=== PATIENT | male | born 1955 | race Caucasian/White ===

== ENCOUNTER 2016-07-06 15:39 | Emergency (ER) | payer OTHER ==
--- NOTE | 2016-07-06 16:49 | ED CLINICAL REPORT ---
Clinical Report - Physicians/Mid Levels [facility] [address] [place] [address] 07/06/2016 15:42 Patient: ERMELINDA MASSEY JR Time Seen: 1645 Jul 06 2016. Arrived- By private vehicle. HISTORY OF PRESENT ILLNESS Chief Complaint: DENTAL PAIN. This started just prior to arrival and is still present. Pain described as mild. No mouth sores or nasal discharge or congestion. (Right dental pain over the last 3 days, recently seen by primary care doctor, and on antibiotics, amoxicillin. Diabetic , last glucose around 200. NO sore throat, no cough.). REVIEW OF SYSTEMS No cough, diarrhea, abdominal pain or headache. All systems otherwise negative, except as recorded above. PAST HISTORY Problems: Cirrhosis. Gastroesophageal Reflux Disease. Diabetes Mellitus. Hypertension. Ankylosing Spondylitis. Medications: Methadone HCl Oral. Omeprazole Oral. Insulin Regular Human Injection. Allergies: Codeine. SOCIAL HISTORY Smoker- current status unknown. ADDITIONAL NOTES The nursing notes have been reviewed. PHYSICAL EXAM Vital Signs: 07/06/2016 15:52 BP: 133/75. HR: 74. RR: 16. O2 saturation: 100%. Temp: 97.8 F. Appearance: Alert. Head: Normal external inspection. Eyes: Conjunctivae and eyelids normal. ENT: Pharynx normal. Lips normal. Gums normal. No trismus present. Uvula midline. No peritonsillar mass, muffled or hoarse voice or dental decay or tenderness. Neck: Trachea midline. No adenopathy. Thyroid normal. CVS: Normal heart rate and rhythm. Heart sounds normal. Respiratory: No respiratory distress. Breath sounds normal. No rales or rhonchi. Skin: Normal skin color. PROGRESS AND PROCEDURES Course of Care: Pt in the er with no distress, afebrile, no signs of ludwigns angina. Pt is a diabetic glucose about 300 in the ER ( bedside blood sugar 306). Uvula midline. No drooing, afebrile, tolerating secretions well. 07/06/2016 15:52 BP: 133/75. HR: 74. RR: 16. O2 saturation: 100%. Temp: 97.8 F. Patient is stable. Symptoms better. Patient/family counseled. Disposition: Discharged. Condition: good. CLINICAL IMPRESSION Moderate dental pain. Well controlled type 2 diabetes with hyperglycemia. INSTRUCTIONS Drink plenty of fluids. (STOP AMOX). Your Current Medications: CONTINUE TAKING THE FOLLOWING MEDICATIONS: Insulin Regular Human Injection. Methadone HCl Oral. Omeprazole Oral. Prescription Medications: Cleocin 300 mg: take 1 capsule orally every 8 hours for 7 days. No refill. Substitution is permissible. Follow-up: Follow up with a specialist in. Understanding of the discharge instructions verbalized by patient. (Electronically signed by Karmen Nelson P.A.-C 07/06/2016 17:52)
--- NOTE | 2016-07-06 16:49 | ED ORDER SUMMARY ---
..... Patient: ERMELINDA MASSEY JR OrderSheet [facility] VisitID: [id number] [place] [address] 61y, M Registration Date/Time: 07/06/2016 ORDER SHEET Weight: 78.9 kg Allergies: Codeine GENERAL ORDERS: POC Glucose (16:21 07/06/2016 EKkenlejose P.A.-C) (16:33 [facility]) MEDICATION ORDERS: Clindamycin IM 600 mg (NOW) (16:44 07/06/2016 EKkenleva P.A.-C) (16:57 [facility]) Insulin Reg Subcut 6 units (HIGH ALERT MEDICATION, NOW) (16:44 07/06/2016 EKoroleva P.A.-C) (16:57 [facility]) IV FLUIDS: ORDER SHEET NOTES: [Electronically signed by Radha Neri (17:41 07/06/2016)] [Electronically signed by Karmen Nelson P.A.-C (17:52 07/06/2016)] [Electronically locked/signed by Radha Neri (17:41 07/06/2016)]
--- NOTE | 2016-07-06 16:49 | ED NURSING NOTES ---
Clinical Report - Nurses [facility] [address] [place] [address] 07/06/2016 15:42 Patient: ERMELINDA MASSEY JR TRIAGE Triage time 1550. Acuity: LEVEL 4. Chief Complaint: RIGHT LOWER TOOTHACHE. Alert. No acute distress. --16:24 Radha Neri 15:52 07/06/16. BP: 133/75. HR: 74. RR: 16. O2 saturation: 100%. Temp: 97.8 F. Pain level now 8/10. --16:24 Radha Neri. Weight: 78.9 kg. Height/Length: 71 inches. BMI: 24.3. --15:51 Radha Neri. Medications Insulin Regular Human Injection. --16:16 Radha Neri Omeprazole Oral. --16:16 Radha Neri Methadone HCl Oral. --16:19 Radha Neri. Allergies Codeine. --16:17 Radha Neri. History Arrived by private vehicle. Historian: patient and family. Accompanied by family. Onset. (1 weeks ago). ( Pt saw 3 days ago, placed on Amoxicillin, sts it is not working). 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 SOCIAL HX: Current every day smoker, start date 1976 (cigarette). --16:24 Radha Neri. PROBLEMS: Cirrhosis. Gastroesophageal Reflux Disease. Diabetes Mellitus. Hypertension. Ankylosing Spondylitis. --16:18 Radha Neri. Interventions To treatment room. --16:24 Radha Neri. PHYSICAL ASSESSMENT GENERAL / NEURO / PSYCH: Alert. Oriented X 4. Appears in no acute distress. HEENT: Pupils equal, round and reactive to light. Dental tenderness. Dental decay. Mucous membranes are pink. RESPIRATORY: Respirations not labored. CVS: Capillary refill less than 2 seconds. SKIN: Skin is warm and dry. Normal skin turgor. --16:25 Radha Neri. NURSING PROGRESS NOTES 16:57 07/06/2016 Clindamycin IM 600 mg given. Given in the right gluteus colin and left gluteus colin (split dose). Allergies verified and confirmed 5 rights. --16:57 Radha Neri 16:57 07/06/2016 Insulin Reg Subcutaneous 6 unit given. Given in the left abdomen. Allergies verified and confirmed 5 rights. --16:57 Radha Neri ( bedside blood sugar 306). --17:22 Radha Neri Reassessment after medication administered. He has had no adverse reaction. --17:40 Radha Neri. DISPOSITION / DISCHARGE Condition at departure: unchanged and stable. No learning barriers present. Discharge instructions provided and reviewed with the patient. Reviewed medication(s). Patient verbalized understanding. Written instructions provided in [place]. The patient was discharged by the physician engineer first assistant. He was discharged home and accompanied by family. He left the Emergency Department ambulatory and via private vehicle. Family member driving. --17:40 Radha Neri Departure time: 1740. --17:41 Radha Neri. Locked/Released at 07/06/2016 17:41 by Radha Neri,
--- NOTE | 2016-07-06 16:49 | ED CLINICAL REPORT ---
Clinical Report - Physicians/Mid Levels [facility] [address] [place] [place] [address] 07/06/2016 15:42 Patient: ERMELINDA MASSEY JR Time Seen: 1645 Jul 06 2016. Arrived- By private vehicle. HISTORY OF PRESENT ILLNESS Chief Complaint: DENTAL PAIN. This started just prior to arrival and is still present. Pain described as mild. No mouth sores or nasal discharge or congestion. (Right dental pain over the last 3 days, recently seen by primary care doctor, and on antibiotics, amoxicillin. Diabetic , last glucose around 200. NO sore throat, no cough.). REVIEW OF SYSTEMS No cough, diarrhea, abdominal pain or headache. All systems otherwise negative, except as recorded above. PAST HISTORY Problems: Cirrhosis. Gastroesophageal Reflux Disease. Diabetes Mellitus. Hypertension. Ankylosing Spondylitis. Medications: Methadone HCl Oral. Omeprazole Oral. Insulin Regular Human Injection. Allergies: Codeine. SOCIAL HISTORY Smoker- current status unknown. ADDITIONAL NOTES The nursing notes have been reviewed. PHYSICAL EXAM Vital Signs: 07/06/2016 15:52 BP: 133/75. HR: 74. RR: 16. O2 saturation: 100%. Temp: 97.8 F. Appearance: Alert. Head: Normal external inspection. Eyes: Conjunctivae and eyelids normal. ENT: Pharynx normal. Lips normal. Gums normal. No trismus present. Uvula midline. No peritonsillar mass, muffled or hoarse voice or dental decay or tenderness. Neck: Trachea midline. No adenopathy. Thyroid normal. CVS: Normal heart rate and rhythm. Heart sounds normal. Respiratory: No respiratory distress. Breath sounds normal. No rales or rhonchi. Skin: Normal skin color. PROGRESS AND PROCEDURES Course of Care: Pt in the er with no distress, afebrile, no signs of ludwigns angina. Pt is a diabetic glucose about 300 in the ER ( bedside blood sugar 306). Uvula midline. No drooing, afebrile, tolerating secretions well. 07/06/2016 15:52 BP: 133/75. HR: 74. RR: 16. O2 saturation: 100%. Temp: 97.8 F. Patient is stable. Symptoms better. Patient/family counseled. Disposition: Discharged. Condition: good. CLINICAL IMPRESSION Moderate dental pain. Well controlled type 2 diabetes with hyperglycemia. INSTRUCTIONS Drink plenty of fluids. (STOP AMOX). Your Current Medications: CONTINUE TAKING THE FOLLOWING MEDICATIONS: Insulin Regular Human Injection. Methadone HCl Oral. Omeprazole Oral. Prescription Medications: Cleocin 300 mg: take 1 capsule orally every 8 hours for 7 days. No refill. Substitution is permissible. Follow-up: Follow up with a specialist in. Understanding of the discharge instructions verbalized by patient. (Electronically signed by Karmen Nelson P.A.-C 07/06/2016 17:52)
--- NOTE | 2016-07-06 16:49 | ED NURSING NOTES ---
Clinical Report - Nurses [facility] [address] [place] [address] 07/06/2016 15:42 Patient: ERMELINDA MASSEY JR TRIAGE Triage time 1550. Acuity: LEVEL 4. Chief Complaint: RIGHT LOWER TOOTHACHE. Alert. No acute distress. --16:24 Radha Neri 15:52 07/06/16. BP: 133/75. HR: 74. RR: 16. O2 saturation: 100%. Temp: 97.8 F. Pain level now 8/10. --16:24 Radha Neri. Weight: 78.9 kg. Height/Length: 71 inches. BMI: 24.3. --15:51 Radha Neri. Medications Insulin Regular Human Injection. --16:16 Radha Neri Omeprazole Oral. --16:16 Radha Neri Methadone HCl Oral. --16:19 Radha Neri. Allergies Codeine. --16:17 Radha Neri. History Arrived by private vehicle. Historian: patient and family. Accompanied by family. Onset. (1 weeks ago). ( Pt saw 3 days ago, placed on Amoxicillin, sts it is not working). 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 SOCIAL HX: Current every day smoker, start date 1976 (cigarette). --16:24 Radha Neri. PROBLEMS: Cirrhosis. Gastroesophageal Reflux Disease. Diabetes Mellitus. Hypertension. Ankylosing Spondylitis. --16:18 Radha Neri. Interventions To treatment room. --16:24 Radha Neri. PHYSICAL ASSESSMENT GENERAL / NEURO / PSYCH: Alert. Oriented X 4. Appears in no acute distress. HEENT: Pupils equal, round and reactive to light. Dental tenderness. Dental decay. Mucous membranes are pink. RESPIRATORY: Respirations not labored. CVS: Capillary refill less than 2 seconds. SKIN: Skin is warm and dry. Normal skin turgor. --16:25 Radha Neri. NURSING PROGRESS NOTES 16:57 07/06/2016 Clindamycin IM 600 mg given. Given in the right gluteus colin and left gluteus colin (split dose). Allergies verified and confirmed 5 rights. --16:57 Radah Neri 16:57 07/06/2016 Insulin Reg Subcutaneous 6 unit given. Given in the left abdomen. Allergies verified and confirmed 5 rights. --16:57 Radha Neri ( bedside blood sugar 306). --17:22 Radha Neri Reassessment after medication administered. He has had no adverse reaction. --17:40 Radha Neri. DISPOSITION / DISCHARGE Condition at departure: unchanged and stable. No learning barriers present. Discharge instructions provided and reviewed with the patient. Reviewed medication(s). Patient verbalized understanding. Written instructions provided in Kosovan. The patient was discharged by the physician pediatric medical assistant. He was discharged home and accompanied by family. He left the Emergency Department ambulatory and via private vehicle. Family member driving. --17:40 Radha Neri Departure time: 1740. --17:41 Radha Neri. Locked/Released at 07/06/2016 17:41 by Radha Neri,
--- NOTE | 2016-07-06 16:49 | ED ORDER SUMMARY ---
..... Patient: ERMELINDA MASSEY JR OrderSheet [facility] VisitID: [id number] [place] [address] 61y, M Registration Date/Time: 07/06/2016 ORDER SHEET Weight: 78.9 kg Allergies: Codeine GENERAL ORDERS: POC Glucose (16:21 07/06/2016 EKkenlejose P.A.-C) (16:33 [facility]) MEDICATION ORDERS: Clindamycin IM 600 mg (NOW) (16:44 07/06/2016 EKkenleva P.A.-C) (16:57 [facility]) Insulin Reg Subcut 6 units (HIGH ALERT MEDICATION, NOW) (16:44 07/06/2016 EKoroleva P.A.-C) (16:57 [facility]) IV FLUIDS: ORDER SHEET NOTES: [Electronically signed by Radha Neri (17:41 07/06/2016)] [Electronically signed by Karmen Nelson P.A.-C (17:52 07/06/2016)] [Electronically locked/signed by Radha Neri (17:41 07/06/2016)]
--- NOTE | 2016-07-06 17:52 | ED DISCHARGE INSTRUCTIONS ---
Patient: ERMELINDA MASSEY General Instructions [facility] VisitID: [id number] [place] [address] 61y, M Registration Date/Time: 07/06/2016 Moderate dental pain. Well controlled type 2 diabetes with hyperglycemia. INSTRUCTIONS Drink plenty of fluids. (STOP AMOX). Your Current Medications: CONTINUE TAKING THE FOLLOWING MEDICATIONS: Insulin Regular Human Injection. Methadone HCl Oral. Omeprazole Oral. Prescription Medications: Cleocin 300 mg: take 1 capsule orally every 8 hours for 7 days. No refill. Substitution is permissible. Follow-up: Follow up with a specialist in. Understanding of the discharge instructions verbalized by patient. ADDITIONAL INFORMATION Dental Pain A crack or cavity in the tooth, which exposes the sensitive inner area of the tooth can cause tooth pain. An infection in the gum or the root of the tooth can cause pain and swelling. The pain is often made worse by drinking hot or cold fluids, or biting on hard foods. Pain may spread from the tooth to the ear or jaw on the same side. Home Care: Avoid hot and cold foods and liquids since your tooth may be sensitive to temperature changes. If your tooth is chipped or cracked, or if there is a large open cavity, apply OIL OF CLOVES (available [id number] in drug stores) directly to the tooth to reduce pain. Some pharmacies carry an [id number] "toothache kit." This contains a paste, which can be applied over the exposed tooth to decrease sensitivity. A cold pack on your jaw over the sore area may help reduce pain. You may use acetaminophen (Tylenol) or ibuprofen (Motrin, Advil) to control pain, unless another medicine was prescribed. [ NOTE: If you have chronic liver or kidney disease or ever had a stomach ulcer or GI bleeding, talk with your doctor before using these medicines.] If you have signs of an infection, an antibiotic will be given. Take it as directed. Follow-Up as directed with a dentist. Your pain may go away with the treatment given. However, only a dentist can fully evaluate and treat the cause and prevent the pain from coming back again. TOOTHACHE IS A SIGN OF DISEASE IN YOUR TOOTH AND SHOULD BE EXAMINED AND TREATED BY A DENTIST. Get Prompt Medical Attention if any of the following occur: Your face becomes swollen or red Pain worsens or spreads to the neck Fever over 100.4 F (38.0 C) Unusual drowsiness; headache or stiff neck; weakness or fainting Pus drains from the tooth Difficulty swallowing or breathing Diabetes with High Blood Sugar You have been treated for high blood sugar (hyperglycemia). This may be becauseof an infection or other illness;eating too many sweets or starches ; not taking enough insulin. Home care High blood sugar may cause symptoms that you can learn to recognize, such as these: If you feel like your blood sugar may be too high, measure it using a blood or urine test. If it is above your usual range, use the "sliding scale"rRegular insulin dose your doctor gave you to correct this. If no "sliding scale" orders were given, contact your doctor for further advice. If your blood sugar is over 300, and you can't reach your doctor, go to the hospital emergency room. Monitor and write down your blood sugars - and insulin dose, if you take insulin - atleast twice a day. Do this before breakfast and before dinner. Do this for the next 3 to 5 days. Follow-up care Follow up with your health care provderduring the next week to review your blood sugar records. You will find out if you need to adjust your dose of insulin or other medicine for blood sugar. When to seek medical care Get prompt medical attention if either of these occur: High blood sugar.Symptoms are frequent urination, feeling dizzy, thirst, headache, nausea or vomiting, abdominal pain, and drowsiness or loss of consciousness. Low blood sugar. Symptoms are fatigue, headache, shakes, excess sweating, hunger, anxiety, reduced vision, drowsiness, weakness, confusion or loss of consciousness, and seizure. Clindamycin Hydrochloride Oral capsule What is this medicine? CLINDAMYCIN (KLIN da MYE sin) is a lincosamide antibiotic. It is used to treat certain kinds of bacterial infections. It will not work for colds, flu, or other viral infections. How should I use this medicine? Take this medicine by mouth with a full glass of water. Follow the directions on the prescription label. You can take this medicine with food or on an empty stomach. If the medicine upsets your stomach, take it with food. Take your medicine at regular intervals. Do not take your medicine more often than directed. Take all of your medicine as directed even if you think your are better. Do not skip doses or stop your medicine early. Talk to your director of special services regarding the use of this medicine in children. Special care may be needed. What side effects may I notice from receiving this medicine? Side effects that you should report to your doctor or health care mgr as soon as possible: allergic reactions like skin rash, itching or hives, swelling of the face, lips, or tongue dark urine pain on swallowing redness, blistering, peeling or loosening of the skin, including inside the mouth unusual bleeding or bruising unusually weak or tired yellowing of eyes or skin Side effects that usually do not require medical attention (report to your doctor or health care mgr if they continue or are bothersome): diarrhea itching in the rectal or genital area joint pain nausea, vomiting stomach pain What may interact with this medicine? chloramphenicol erythromycin kaolin products What if I miss a dose? If you miss a dose, take it as soon as you can. If it is almost time for your next dose, take only that dose. Do not take double or extra doses. Where should I keep my medicine? Keep out of the reach of children. Store at room temperature between 20 and 25 degrees C (68 and 77 degrees F). Throw away any unused medicine after the expiration date. What should I tell my health care provider before I take this medicine? They need to know if you have any of these conditions: kidney disease liver disease stomach problems like colitis an unusual or allergic reaction to clindamycin, lincomycin, or other medicines, foods, dyes like tartrazine or preservatives or trying to get breast-feeding What should I watch for while using this medicine? Tell your doctor or healthcare professional if your symptoms do not start to get better or if they get worse. Do not treat diarrhea with over the counter products. Contact your doctor if you have diarrhea that lasts more than 2 days or if it is severe and watery. You have been given the following additional information: Dental Pain Diabetic Hyperglycemia Clindamycin Hydrochloride Oral capsule (Electronically signed by Karmen Nelson P.A.-C 07/06/2016 17:52)
--- NOTE | 2016-07-06 17:52 | ED DISCHARGE INSTRUCTIONS ---
Patient: ERMELINDA MASSEY General Instructions [facility] VisitID: [id number] [place] [address] 61y, M Registration Date/Time: 07/06/2016 Moderate dental pain. Well controlled type 2 diabetes with hyperglycemia. INSTRUCTIONS Drink plenty of fluids. (STOP AMOX). Your Current Medications: CONTINUE TAKING THE FOLLOWING MEDICATIONS: Insulin Regular Human Injection. Methadone HCl Oral. Omeprazole Oral. Prescription Medications: Cleocin 300 mg: take 1 capsule orally every 8 hours for 7 days. No refill. Substitution is permissible. Follow-up: Follow up with a specialist in. Understanding of the discharge instructions verbalized by patient. ADDITIONAL INFORMATION Dental Pain A crack or cavity in the tooth, which exposes the sensitive inner area of the tooth can cause tooth pain. An infection in the gum or the root of the tooth can cause pain and swelling. The pain is often made worse by drinking hot or cold fluids, or biting on hard foods. Pain may spread from the tooth to the ear or jaw on the same side. Home Care: Avoid hot and cold foods and liquids since your tooth may be sensitive to temperature changes. If your tooth is chipped or cracked, or if there is a large open cavity, apply OIL OF CLOVES (available [id number] in drug stores) directly to the tooth to reduce pain. Some pharmacies carry an [id number] "toothache kit." This contains a paste, which can be applied over the exposed tooth to decrease sensitivity. A cold pack on your jaw over the sore area may help reduce pain. You may use acetaminophen (Tylenol) or ibuprofen (Motrin, Advil) to control pain, unless another medicine was prescribed. [ NOTE: If you have chronic liver or kidney disease or ever had a stomach ulcer or GI bleeding, talk with your doctor before using these medicines.] If you have signs of an infection, an antibiotic will be given. Take it as directed. Follow-Up as directed with a dentist. Your pain may go away with the treatment given. However, only a dentist can fully evaluate and treat the cause and prevent the pain from coming back again. TOOTHACHE IS A SIGN OF DISEASE IN YOUR TOOTH AND SHOULD BE EXAMINED AND TREATED BY A DENTIST. Get Prompt Medical Attention if any of the following occur: Your face becomes swollen or red Pain worsens or spreads to the neck Fever over 100.4 F (38.0 C) Unusual drowsiness; headache or stiff neck; weakness or fainting Pus drains from the tooth Difficulty swallowing or breathing Diabetes with High Blood Sugar You have been treated for high blood sugar (hyperglycemia). This may be becauseof an infection or other illness;eating too many sweets or starches ; not taking enough insulin. Home care High blood sugar may cause symptoms that you can learn to recognize, such as these: If you feel like your blood sugar may be too high, measure it using a blood or urine test. If it is above your usual range, use the "sliding scale"rRegular insulin dose your doctor gave you to correct this. If no "sliding scale" orders were given, contact your doctor for further advice. If your blood sugar is over 300, and you can't reach your doctor, go to the hospital emergency room. Monitor and write down your blood sugars - and insulin dose, if you take insulin - atleast twice a day. Do this before breakfast and before dinner. Do this for the next 3 to 5 days. Follow-up care Follow up with your health care provderduring the next week to review your blood sugar records. You will find out if you need to adjust your dose of insulin or other medicine for blood sugar. When to seek medical care Get prompt medical attention if either of these occur: High blood sugar.Symptoms are frequent urination, feeling dizzy, thirst, headache, nausea or vomiting, abdominal pain, and drowsiness or loss of consciousness. Low blood sugar. Symptoms are fatigue, headache, shakes, excess sweating, hunger, anxiety, reduced vision, drowsiness, weakness, confusion or loss of consciousness, and seizure. Clindamycin Hydrochloride Oral capsule What is this medicine? CLINDAMYCIN (KLIN da MYE sin) is a lincosamide antibiotic. It is used to treat certain kinds of bacterial infections. It will not work for colds, flu, or other viral infections. How should I use this medicine? Take this medicine by mouth with a full glass of water. Follow the directions on the prescription label. You can take this medicine with food or on an empty stomach. If the medicine upsets your stomach, take it with food. Take your medicine at regular intervals. Do not take your medicine more often than directed. Take all of your medicine as directed even if you think your are better. Do not skip doses or stop your medicine early. Talk to your regional production manager regarding the use of this medicine in children. Special care may be needed. What side effects may I notice from receiving this medicine? Side effects that you should report to your doctor or health care program director as soon as possible: allergic reactions like skin rash, itching or hives, swelling of the face, lips, or tongue dark urine pain on swallowing redness, blistering, peeling or loosening of the skin, including inside the mouth unusual bleeding or bruising unusually weak or tired yellowing of eyes or skin Side effects that usually do not require medical attention (report to your doctor or health care program director if they continue or are bothersome): diarrhea itching in the rectal or genital area joint pain nausea, vomiting stomach pain What may interact with this medicine? chloramphenicol erythromycin kaolin products What if I miss a dose? If you miss a dose, take it as soon as you can. If it is almost time for your next dose, take only that dose. Do not take double or extra doses. Where should I keep my medicine? Keep out of the reach of children. Store at room temperature between 20 and 25 degrees C (68 and 77 degrees F). Throw away any unused medicine after the expiration date. What should I tell my health care provider before I take this medicine? They need to know if you have any of these conditions: kidney disease liver disease stomach problems like colitis an unusual or allergic reaction to clindamycin, lincomycin, or other medicines, foods, dyes like tartrazine or preservatives or trying to get breast-feeding What should I watch for while using this medicine? Tell your doctor or healthcare professional if your symptoms do not start to get better or if they get worse. Do not treat diarrhea with over the counter products. Contact your doctor if you have diarrhea that lasts more than 2 days or if it is severe and watery. You have been given the following additional information: Dental Pain Diabetic Hyperglycemia Clindamycin Hydrochloride Oral capsule (Electronically signed by Karmen Nelson P.A.-C 07/06/2016 17:52)
--- NOTE | 2016-07-06 17:52 | ED MED RECONCILIATION SUMMARY ---
Patient: BRYSON ERMELINDA Boggs JR Medication Reconciliation Report [facility] VisitID: [id number] [address] [place] [address] 61y, M Registration Date/Time: 07/06/2016 Weight: 78.9 kg Height/Length: 71 in. BMI: 24.3 ALLERGIES: Codeine The patient's Home Medications are listed below: CONTINUE TAKING THE FOLLOWING MEDICATIONS: Insulin Regular Human Injection Methadone HCl Oral Omeprazole Oral The source(s) of the original Home Medication information: Not obtained. The following Medications were given to the patient in the Emergency Department: Clindamycin [IM] IM 600 mg, administered: 07/06/2016 4:57:00 PM Insulin Reg [Subcutaneous] Subcutaneous 6 unit, administered: 07/06/2016 4:57:00 PM The following Medications were prescribed to the patient: Cleocin 300 mg: take 1 capsule orally every 8 hours for 7 days. No refill. Substitution is permissible. -- Karmen Nelson PChevyAJeancarlosC
--- NOTE | 2016-07-06 17:52 | ED MAR SUMMARY ---
..... Medication Administration Record [facility] [address] [place] [address] Patient: ERMELINDA MASSEY Visit ID: [id number] 61y, M Weight: 78.9 kg Height/Length: 71 in BMI: 24.3 ALLERGIES: Codeine Given 16:57 07/06/2016 Radha Neri, Medication Administered: CLINDAMYCIN [IM], Dose: 600 mg IM. Medication Ordered: Clindamycin IM 600 mg (NOW). Given 16:57 07/06/2016 Radha Neri, Medication Administered: INSULIN REG [SUBCUTANEOUS], Dose: 6 unit Subcutaneous. Medication Ordered: Insulin Reg Subcut 6 units (HIGH ALERT MEDICATION, NOW).
--- NOTE | 2016-07-06 17:52 | ED MED RECONCILIATION SUMMARY ---
Patient: BRYSON ERMELINDA Boggs JR Medication Reconciliation Report [facility] VisitID: [id number] [address] [place] [address] 61y, M Registration Date/Time: 07/06/2016 Weight: 78.9 kg Height/Length: 71 in. BMI: 24.3 ALLERGIES: Codeine The patient's Home Medications are listed below: CONTINUE TAKING THE FOLLOWING MEDICATIONS: Insulin Regular Human Injection Methadone HCl Oral Omeprazole Oral The source(s) of the original Home Medication information: Not obtained. The following Medications were given to the patient in the Emergency Department: Clindamycin [IM] IM 600 mg, administered: 07/06/2016 4:57:00 PM Insulin Reg [Subcutaneous] Subcutaneous 6 unit, administered: 07/06/2016 4:57:00 PM The following Medications were prescribed to the patient: Cleocin 300 mg: take 1 capsule orally every 8 hours for 7 days. No refill. Substitution is permissible. -- Karmen Nelson PChevyAJeancarlosC
--- NOTE | 2016-07-06 17:52 | ED MAR SUMMARY ---
..... Medication Administration Record [facility] [address] [place] [address] Patient: ERMELINDA MASSEY Visit ID: [id number] 61y, M Weight: 78.9 kg Height/Length: 71 in BMI: 24.3 ALLERGIES: Codeine Given 16:57 07/06/2016 Radha Neri, Medication Administered: CLINDAMYCIN [IM], Dose: 600 mg IM. Medication Ordered: Clindamycin IM 600 mg (NOW). Given 16:57 07/06/2016 Radha Neri, Medication Administered: INSULIN REG [SUBCUTANEOUS], Dose: 6 unit Subcutaneous. Medication Ordered: Insulin Reg Subcut 6 units (HIGH ALERT MEDICATION, NOW).
== END 2016-07-06 17:37 | disposition home or self-care (01) ==
LOC: ED SRH 15:39
DX: K08.89 Other specified disorders of teeth and supporting structures (principal); E11.65 Type 2 diabetes mellitus with hyperglycemia; I10 Essential (primary) hypertension; Z79.4 Long term (current) use of insulin; Z88.5 Allergy status to narcotic agent